=== PATIENT | female | born 1935 | race Caucasian/White ===

== ENCOUNTER 2016-09-25 10:02 | Emergency (ER) | payer MEDICARE, BC ==
[2016-09-25] MEDS ORDERED: OPTIRAY 350 100 ML VIAL HMH IV ONE (10:03)
[2016-09-25] MEDS ORDERED: ONDANSETRON 4 MG VIAL ONE (17:00)
[2016-09-25] MEDS ORDERED: SODIUM CHLORIDE 0.9% 1,000 ML ONE (17:00)
[2016-09-25] MEDS ORDERED: KETOROLAC 30 MG/ML VIAL ONE (17:35)
== END 2016-09-25 20:10 | disposition home or self-care (01) ==
LOC: ER 10:02
DX: R10.9 Unspecified abdominal pain (principal)
CPT/HCPCS: 36415; 74177; 80053; 81003; 83630; 83690; 85025; 87045; 87046; 87177; 87493

== ENCOUNTER 2016-09-27 10:38 | Inpatient (IN) | payer MEDICARE, BC ==
[~2016-09-27] VITALS: Ht 167.6 cm; Wt 59.1 kg
[2016-09-27] MEDS ORDERED: ALPRAZOLAM 0.25 MG TAB PO PRN (10:40)
[2016-09-27] MEDS ORDERED: MORPHINE 2 MG/ML SYR IV PRN (10:40)
[2016-09-27] MEDS ORDERED: ONDANSETRON 4 MG VIAL IV PRN (10:40)
[2016-09-27] MEDS ORDERED: ZOLPIDEM 5 MG TAB PO PRN (10:40)
[2016-09-27] MEDS ORDERED: ACETAMINOPHEN 325 MG TAB PO PRN (10:40)
[2016-09-27] MEDS ORDERED: SALINE FLUSH 10 ML FLUSH PRN (10:40)
[2016-09-27 12:45] VITALS: Ht 167.6 cm; Wt 59.1 kg
[2016-09-27 13:18] VITALS: BP_SYST 138; BP_SYST 140; RESP 16; TEMP 96.5
[2016-09-27] MEDS: SODIUM CHLORIDE 0.9% 1,000 ML IV SCH ×2 (13:27→23:20)
[2016-09-27] MEDS: METRONIDAZOLE 500MG/100ML 100 ML IV SCH ×3 (13:28→23:20)
[2016-09-27] MEDS ORDERED: LISINOPRIL 10 MG TAB PO SCH (14:50)
[2016-09-27] MEDS ORDERED: PAROXETINE HCL 20 MG TAB PO SCH (14:50)
[2016-09-27 15:02] VITALS: BP_SYST 144; RESP 16; TEMP 97.4
[2016-09-27] MEDS ORDERED: PAXIL 40 MG PO SCH (16:22)
[2016-09-27] MEDS ORDERED: LISINOPRIL 30 MG PO SCH (16:23)
[2016-09-27] MEDS ORDERED: *PINK BRACELET XX ONE (16:25)
[2016-09-27 17:21] VITALS: RESP 18
[2016-09-27] MEDS: SALINE FLUSH 10 ML FLUSH SCH (19:50)
[2016-09-27] MEDS: *HOME MEDS IN MED CART XX SCH (19:50)
[2016-09-27] MEDS: *HOME MEDS KEPT IN PHARMACY XX SCH (19:51)
[2016-09-27 19:56] VITALS: BP_SYST 152; RESP 16; TEMP 98.5
[2016-09-27] MEDS: PAXIL 40 MG PO SCH (20:22)
[2016-09-27] MEDS: LISINOPRIL 30 MG PO SCH (20:22)
[2016-09-27 23:36] VITALS: BP_SYST 160; RESP 18; TEMP 97.3
[2016-09-28 03:42] VITALS: BP_SYST 142; RESP 16; TEMP 98
[2016-09-28] MEDS: SODIUM CHLORIDE 0.9% FLUSH BAG 500 ML IV SCH (05:28)
[2016-09-28] MEDS: METRONIDAZOLE 500MG/100ML 100 ML IV SCH ×3 (05:40→17:20)
[2016-09-28] MEDS ORDERED: PANTOPRAZOLE 40 MG TAB PO SCH (07:00)
[2016-09-28] MEDS: *HOME MEDS KEPT IN PHARMACY XX SCH ×2 (08:00→20:00)
[2016-09-28] MEDS: *HOME MEDS IN MED CART XX SCH ×2 (08:00→20:00)
[2016-09-28 08:09] VITALS: BP_SYST 170; RESP 16; TEMP 98.4
[2016-09-28] MEDS: SALINE FLUSH 10 ML FLUSH SCH ×2 (08:58→20:00)
[2016-09-28] MEDS ORDERED: KCL CR 10 MEQ CAP PO ONE (09:25)
[2016-09-28] MEDS: SODIUM CHLOR 0.9% W/KCL 20MEQ 1,000 ML IV SCH (10:21)
[2016-09-28] MEDS: ENOXAPARIN 30 MG/0.3 ML SYR SUBQ SCH (10:22)
[2016-09-28] MEDS: SACCHA BOULARDII 250MG CAP PO SCH ×3 (11:28→21:08)
[2016-09-28 12:11] VITALS: BP_SYST 178; RESP 16; TEMP 97.4
[2016-09-28 17:30] VITALS: BP_SYST 168; RESP 16; TEMP 98.2
[2016-09-28 20:38] VITALS: BP_SYST 160; RESP 20; TEMP 98.3
[2016-09-28] MEDS: LISINOPRIL 30 MG PO SCH (21:08)
[2016-09-28] MEDS: PAXIL 40 MG PO SCH (21:08)
[2016-09-29] VITALS (7 sets, daily range): BP systolic 154–188; RESP 14–18; TEMP 97.5–98.3
[2016-09-29] MEDS ORDERED: MISSING DOSE XX ONE (00:50)
[2016-09-29] MEDS: METRONIDAZOLE 500MG/100ML 100 ML IV SCH ×3 (01:33→12:26)
[2016-09-29] MEDS: SODIUM CHLOR 0.9% W/KCL 20MEQ 1,000 ML IV SCH (03:30)
[2016-09-29] MEDS: SODIUM CHLORIDE 0.9% FLUSH BAG 500 ML IV SCH (06:00)
[2016-09-29] MEDS: SALINE FLUSH 10 ML FLUSH SCH (08:00)
[2016-09-29] MEDS: *HOME MEDS IN MED CART XX SCH (08:00)
[2016-09-29] MEDS: *HOME MEDS KEPT IN PHARMACY XX SCH (08:00)
[2016-09-29] MEDS: SACCHA BOULARDII 250MG CAP PO SCH (09:06)
[2016-09-29] MEDS: LISINOPRIL 30 MG PO SCH (09:07)
[2016-09-29] MEDS: PAXIL 40 MG PO SCH (09:07)
[2016-09-29] MEDS: ENOXAPARIN 30 MG/0.3 ML SYR SUBQ SCH (09:09)
== END 2016-09-29 16:32 | disposition home or self-care (01) | DRG 373 ==
LOC: ENRESERVTM → ENRESERVDT → 3NT 12:15 → OBSVTOIN 09-28 14:08 → ENPENDDIS 09-28 14:08
PROVIDERS: ADMIT Internal Medicine; ATTEND Internal Medicine
DX: A04.7 Enterocolitis due to Clostridium difficile (principal); J44.9 Chronic obstructive pulmonary disease, unspecified; E11.9 Type 2 diabetes mellitus without complications; K57.90 Diverticulosis of intestine, part unspecified, without perforation or abscess without bleeding; Z79.84 Long term (current) use of oral hypoglycemic drugs; I10 Essential (primary) hypertension; E78.5 Hyperlipidemia, unspecified; M19.90 Unspecified osteoarthritis, unspecified site; E55.9 Vitamin D deficiency, unspecified; F43.21 Adjustment disorder with depressed mood; M25.511 Pain in right shoulder; Z72.0 Tobacco use
CPT/HCPCS: 36415; 71250; 72040; 72141; 72146; 74177; 80048; 80053; 80061; 81003; 82274; 83630; 83690; 83735; 83880; 84439; 84443; 85025; 85610; 85652; 86141; 87045; 87046; 87177; 87493; 93005; 94799